=== PATIENT | male | born 1985 | race Caucasian/White ===

== ENCOUNTER 2020-09-08 08:04 | Outpatient (CLI) | payer BC | END 2020-09-08 08:05 | disposition home or self-care (01) | LOC: BICRAD 08:04 | PROVIDERS: ATTEND Family Medicine | DX: R07.1 Chest pain on breathing (principal); J98.4 Other disorders of lung | CPT/HCPCS: 71046 ==

== ENCOUNTER 2020-12-23 12:53 | Outpatient (CLI) | payer BC | END 2020-12-23 12:54 | disposition home or self-care (01) | LOC: BICRAD 12:53 | PROVIDERS: ATTEND Family Medicine | DX: M70.62 Trochanteric bursitis, left hip (principal); D16.22 Benign neoplasm of long bones of left lower limb; M89.8X6 Other specified disorders of bone, lower leg; Z87.81 Personal history of (healed) traumatic fracture ==